=== PATIENT | male | born 1970 | race American Indian/Alaskan Native ===

== ENCOUNTER 2021-06-03 07:06 | Day surgery (SDC) | payer BC ==
[2021-06-03] MEDS ORDERED: MIDAZOLAM 2 MG/2 ML INJ ONE ×2 (08:23→09:00)
[2021-06-03] MEDS ORDERED: LACTATED RINGERS 1,000 ML ONE (08:23)
[2021-06-03] MEDS ORDERED: ceFAZolin/Water 2 GM/20 ML 2 GM/20 ML SYRINGE IV ONE (08:24)
[2021-06-03] MEDS ORDERED: HYDROmorphone 1 MG/1 ML INJ IV PRN ×2 (08:25)
[2021-06-03] MEDS ORDERED: ACETAMINOPHEN 500 MG TAB PO NR (08:25)
[2021-06-03] MEDS ORDERED: ONDANSETRON 4 MG/2 ML INJ IV PRN (08:25)
[2021-06-03] MEDS ORDERED: MAGNESIUM OXIDE 400 MG TAB PO NR (08:25)
--- NOTE | 2021-06-03 08:26 | Anesthesia Day of Surgery ---
Anesthesia Day of Surgery - Day of Surgery Patient Examined: Yes Patient H&P Reviewed: Yes Patient is NPO: Yes
--- NOTE | 2021-06-03 08:27 | Anesthesia Consultation ---
Anesthesia Consult and Med Hx Date of service: 06/03/21 - Airway Anesthetic Teeth Evaluation: Good ROM Head & Neck: Adequate Mental/Hyoid Distance: Adequate Mallampati Class: Class IV (Doesn't open mouth very wide) Intubation Access Assessment: Possibly Difficult - Pre-Operative Health Status ASA Pre-Surgery Classification: ASA1 Proposed Anesthetic Plan: General - Pulmonary Hx Smoking: No Hx Sleep Apnea: No (EUN PRE SCREEN LOW RISK) - Cardiovascular System Hx Hypertension: No - Central Nervous System Hx Psychiatric Problems: No - Hematic Hx Anemia: No Hx Sickle Cell Disease: No - Other Systems Hx Alcohol Use: Yes (RARE-WINE) Hx Substance Use: No Hx Cancer: No Hx Obesity: No
[2021-06-03] MEDS ORDERED: CELECOXIB 200 MG CAP PO NR (09:00)
[2021-06-03] MEDS ORDERED: LACTATED RINGERS 1,000 ML IV SCH (09:00)
[2021-06-03] MEDS ORDERED: fentaNYL 250 MCG/5 ML INJ ONE (09:00)
[2021-06-03] MEDS ORDERED: ONDANSETRON 4 MG/2 ML INJ ONE (09:00)
[2021-06-03] MEDS ORDERED: GABAPENTIN 300 MG CAP PO NR (09:00)
[2021-06-03] MEDS ORDERED: MIDAZOLAM 2 MG/2 ML INJ IV NR (09:00)
[2021-06-03] MEDS ORDERED: fentaNYL 100 MCG/2 ML INJ ONE (09:01)
[2021-06-03] MEDS ORDERED: propofoL 200 MG/20 ML VIAL IV ONE (09:01)
[2021-06-03] MEDS ORDERED: dexAMETHasone 20 MG/5 ML VIAL ONE (09:02)
[2021-06-03] MEDS ORDERED: LIDOCAINE MPF (2%) 20 MG/1 ML VIAL 5 ML ONE (09:02)
[2021-06-03] MEDS ORDERED: SODIUM CHLORIDE 0.9% IRR 1,500 ML BOTTLE IR ONE (09:53)
--- NOTE | 2021-06-03 10:08 | Short Stay Summary ---
Short Stay Documentation Date of service: 06/03/21 - History H&P: obtained from office - Allergies and Medications Current Medications: Allergies No Known Allergies Allergy (Verified 03/06/20 10:36) Home Medications Medication Instructions Recorded Confirmed Last Taken Type B12 Active 1,000 mcg PO DAILY 03/05/20 05/26/21 Unknown History Complete Multi Tablet 1 tab PO DAILY 03/05/20 05/26/21 Unknown History Ascorbic Acid [Vitamin C] 1,000 mg PO DAILY 05/26/21 05/26/21 Unknown History Cholecalciferol (Vitamin D3) 2,000 unit PO QDAY 05/26/21 05/26/21 Unknown History [Vitamin D3 2,000 UNIT CAP] Active Medications Acetaminophen (Acetaminophen 500 Mg Tab) 1,000 mg PO ONCE NR Stop: 06/03/21 13:00 Celecoxib (Celecoxib 200 Mg Cap) 400 mg PO PREOP NR Stop: 06/03/21 11:00 Hydromorphone HCl (Hydromorphone 1 Mg/1 Ml Inj) 0.25 mg IV Q10MIN PRN PRN Reason: Pain, Moderate (4-6) Stop: 06/03/21 20:00 Hydromorphone HCl (Hydromorphone 1 Mg/1 Ml Inj) 0.5 mg IV Q10MIN PRN PRN Reason: Pain , Severe (7-10) Stop: 06/03/21 20:00 Lactated Ringer's (Lactated Ringers) 1,000 mls @ 125 mls/hr IV DIRECT MALGORZATA Midazolam HCl (Midazolam 2 Mg/2 Ml Inj) 2 mg IV PREOP NR Stop: 06/03/21 23:59 - Brief post op/procedure progress note Date of procedure: 06/03/21 Pre-op diagnosis: phimosis Post-op diagnosis: same Procedure: circ Anesthesia: GETA Surgeon: RAMEZ BRIZUELA Estimated blood loss: minimal Pathology: list (foreksin) Specimen disposition: to lab Condition: stable - Disposition Condition at discharge: Stable Disposition: 01 HOME / SELF CARE / HOMELESS Short Stay Discharge Plan Follow up with: PRIMARY CARE, [Primary Care Provider] - 7 Days
--- NOTE | 2021-06-03 10:20 | Operative Report ---
DATE OF SURGERY: 06/03/2021 PREOPERATIVE DIAGNOSIS: Phimosis. POSTOPERATIVE DIAGNOSIS: Phimosis. PROCEDURE: Circumcision. SURGEON: Dejon Dean MD ANESTHESIA: General. ESTIMATED BLOOD LOSS: Minimal. FLUIDS: Crystalloid. COMPLICATIONS: No complications. INDICATIONS: This 50-year-old gentleman seen in the office with recurrent phimosis, difficulty to retract his foreskin. We discussed options. He agreed to proceed with surgical intervention. DESCRIPTION OF PROCEDURE: The patient was taken to the operative suite, placed in a supine position. After adequate general anesthesia, his foreskin was marked at the level of the coronal ridge. Dorsal and ventral slit was made. Foreskin was circumferentially removed and sent for routine pathologic evaluation. Shaft skin was retracted proximally. Adequate hemostasis was achieved. Proximal and distal shaft skin was reapproximated and closed with 3-0 chromic in an interrupted fashion. Xeroform gauze was placed on the incision. Win. The patient was extubated and taken to recovery room. He will go home on [facility] and follow up in the office. TID: [id number] RECEIPT: [id number] [facility]
[2021-06-03 11:37] VITALS: BP 121/78
--- NOTE | 2021-06-03 17:25 | Post Anesthesia Evaluation ---
- Post Anesthesia Evaluation Patient Participated: Yes Airway Patent: Yes Stable Respiratory Function: Yes Nausea/Vomiting: No Temp > 96.8F: Yes Pain Manageable: Yes Adequeate Hydration: Yes Anesthesia Complications: No Block Receding Appropriately: Not Applicable Patient on Ventilator: No
== END 2021-06-03 11:40 | disposition home or self-care (01) ==
LOC: OR 07:06
PROVIDERS: ATTEND Urology
DX: N47.1 Phimosis (principal); Z79.899 Other long term (current) drug therapy; Z72.89 Other problems related to lifestyle; Z98.890 Other specified postprocedural states
CPT/HCPCS: 54161; 88304; J0690; J1100; J1170; J2250; J2405; J2704; J3010; J3490; J7120